=== PATIENT | male | born 1990 | race Two or more races ===

== ENCOUNTER 2020-02-17 19:16 | Emergency (ER) | payer MEDICAID, OTHER ==
[~2020-02-17] VITALS: Ht 177.8 cm; Wt 83.9 kg
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
--- NOTE | 2020-02-17 19:36 | NUR ---
TANK REFINISHER IS AT THE BEDSIDE FOR BLOOD DRAW.
--- NOTE | 2020-02-17 19:41 | NUR ---
PT LEFT FOR CT VIA GURNEY.
[2020-02-17 19:44] LABS: BASOPHILS % (AUTO) 0.5 % (0.0-2.0); EOSINOPHILS % (AUTO) 2.1 % (0.0-6.0); HEMATOCRIT 45 % (39-51); HEMOGLOBIN 14.8 g/dL (13.5-17.5); LYMPHOCYTES # (AUTO) 1.9 /CMM (0.8-4.8); LYMPHOCYTES % (AUTO) 31.4 % (20.0-44.0); MEAN CORPUSCULAR HGB CONC 33 g/dl (31.0-36.0); MEAN CORPUSCULAR VOLUME 92 fL (80-96); MONOCYTES # (AUTO) 0.4 /CMM (0.1-1.30); MONOCYTES % (AUTO) 7.1 % (2.0-12.0); NEUTROPHILS # (AUTO) 3.6 /CMM (1.8-8.9); NEUTROPHILS % (AUTO) 58.9 % (43.0-81.0); PLATELET COUNT (AUTO) 318 /CMM (150-450); RED BLOOD CELL COUNT(AUTO) 4.85 MIL/uL (4.5-6.0); WHITE BLOOD COUNT (AUTO) 6.1 K/uL (4.3-11.0)
--- NOTE | 2020-02-17 19:50 | NUR ---
PT RETURNED FROM CT.
[2020-02-17 19:53] LABS: CALCIUM, SERUM 9.1 mg/dL (8.5-10.1); CARBON DIOXIDE 26 mmol/L (21-32); CHLORIDE 105 mmol/L (98-107); CREATININE 1.4 mg/dL (0.6-1.3); GLUCOSE 104 mg/dL (74-106); POTASSIUM 3.6 mmol/L (3.5-5.1); SODIUM SERUM 141 mmol/L (136-145); UREA NITROGEN, BLOOD 18 mg/dL (7-18)
[2020-02-17 20:01] LABS: ALANINE AMINOTRANSFERASE 19 U/L (12-78); ALBUMIN 4.4 g/dL (3.4-5.0); ALCOHOL, BLOOD < 3 mg/dL (0-0); ALKALINE PHOSPHATASE 73 U/L (46-116); BILIRUBIN,DIRECT 0.1 mg/dL (0.0-0.2); BILIRUBIN,TOTAL 0.7 mg/dL (0.2-1.0); TOTAL PROTEIN, SERUM 7.9 g/dL (6.4-8.2)
[2020-02-17 20:03] LABS: ACETAMINOPHEN < 2 ug/ml (10-30); SALICYLATE < 0.2 mg/dL (2.8-20.0)
--- NOTE | 2020-02-17 20:07 | NUR ---
IN AND OUT CATH DONE. APPROX 50 ML YELLOW URINE OUTPUT NOTED. SAMPLE SENT TO LAB. PT SLEPT THROUGH THE PROCEDURE.
[2020-02-17 20:16] LABS: ASPARTATE AMINOTRANSFERASE 18 U/L (15-37)
[2020-02-17 20:31] LABS: APPEARANCE,URINE Clear (CLEAR); BILIRUBIN,URINE SMALL (NEGATIVE); BLOOD, URINE Negative Ery/uL (NEGATIVE); COLOR,URINE Yellow (YELLOW); KETONES,URINE Negative (NEGATIVE); LEUKOCYTE ESTERASE ,URINE Negative (NEGATIVE); NITRITE, URINE Negative (NEGATIVE); PROTEIN,URINE 30 mg/dl (NEGATIVE); UGLUCOSE Negative (NEGATIVE)
--- NOTE | 2020-02-17 20:38 | NUR ---
PT RETURNED FROM THE BATHROOM. PT WAS FALLING ASLEEP ON THE TOILET TWICE. PT USED THE TOILET AND AMBULATED BACK TO ER #1. PT WAS PLACED BACK ON THE MONITOR AND CONTINUOUS PULSE OX.
[2020-02-17 20:45] LABS: BACTERIA,URINE Rare /HPF (None Seen); RBC,URINE NONE SEEN /HPF (0-2); SQUAMOUS EPITHELIAL CELL,UR Few /HPF (None Seen); WBC,URINE NONE SEEN /HPF (0-3)
--- NOTE | 2020-02-17 20:52 | NUR ---
PAGED BLAKE TO READ CHESTXRAY
[2020-02-17] MEDS ORDERED: OLANZAPINE 5 MG TABLET PO ONE (21:00)
[2020-02-17] MEDS ORDERED: OLANZAPINE 5 MG TABLET ONE (21:12)
--- NOTE | 2020-02-17 22:15 | NUR ---
DR MCCULLOUGH SPOKE TO THE PT RE: PLAN. PT IS AA&O X4. PT IS CALLING HIS FRIEND, ALEX, TO COME AND PICK HIM UP. PT WILL BE DISCHARGED WHEN HIS FRIEND ARRIVES. PT WAS INSTRUCTED NOT TO DRIVE.
--- NOTE | 2020-02-17 22:32 | NUR ---
PT AMBULATED TO THE BATHROOM WITH A STEADY GAIT.
[2020-02-17 22:48] VITALS: BP 129/85
--- NOTE | 2020-02-17 22:49 | NUR ---
Patient discharged to home in stable condition. Written and verbal after care instructions given. Patient verbalizes understanding of instruction. PT'S FRIEND, ALEX, ARRIVED AND IS TAKING THE PT HOME. VSS. PT AMBULATED OUT WITH A STEADY GAIT.
== END 2020-02-17 22:50 | disposition home or self-care (01) ==
LOC: ER 19:17
DX: F15.10 Other stimulant abuse, uncomplicated (principal); R45.1 Restlessness and agitation; R40.4 Transient alteration of awareness
CPT/HCPCS: 36415; 70450; 71045; 80048; 80076; 80305; 80307; 80329; 81001; 82550; 82962; 85025; 99285; G0480; 81000-TC